=== PATIENT | female | born 1940 | race Caucasian/White ===

== ENCOUNTER 2018-07-19 18:33 | Emergency (ER) | payer MEDICARE ==
[~2018-07-19] VITALS: Ht 157.5 cm; Wt 69.9 kg
[2018-07-19 19:17] VITALS: BP 157/116
[2018-07-19] MEDS ORDERED: RT-ALBUTEROL/IPRATROPIUM 3 ML (DUONEB) VIAL INH ONE ×2 (19:30→20:30)
[2018-07-19 19:33] LABS: BASOPHILS # (AUTO) 0.1 10^3/uL (0.0-0.1); BASOPHILS % (AUTO) 1 % (0-10); EOSINOPHILS # (AUTO) 0.5 10^3/uL (0.0-0.3); EOSINOPHILS % (AUTO) 6 % (0-10); HEMATOCRIT 40 % (35-52); HEMOGLOBIN 13.2 G/DL (11.5-16.0); LYMPHOCYTES # (AUTO) 1.3 X 10^3 (1.0-4.0); LYMPHOCYTES % (AUTO) 15 % (12-44); MEAN CORPUSCULAR HEMOGLOBIN 29 PG (25-34); MEAN CORPUSCULAR HGB CONC 33 G/DL (32-36); MEAN CORPUSCULAR VOLUME 87 FL (80-99); MEAN PLATELET VOLUME 10.1 FL (7.4-10.4); MONOCYTES # (AUTO) 1.6 X 10^3 (0.0-1.0); MONOCYTES % (AUTO) 19 % (0-12); NEUTROPHILS % (AUTO) 59 % (42-75); PLATELET COUNT 222 10^3/uL (130-400); RED BLOOD COUNT 4.57 10^6/uL (4.35-5.85); RED CELL DISTRIBUTION WIDTH 15.1 % (10.0-14.5); WHITE BLOOD COUNT 8.4 10^3/uL (4.3-11.0)
[2018-07-19 19:40] LABS: INR 1.7 (0.8-1.4); PROTHROMBIN TIME PATIENT 20.2 SEC (12.2-14.7)
[2018-07-19 19:47] LABS: ALANINE AMINOTRANSFERASE 20 U/L (0-55); ALKALINE PHOSPHATASE 74 U/L (40-136); BILIRUBIN,TOTAL 0.6 MG/DL (0.1-1.0); BUN/CREATININE RATIO 23; CALCIUM 8.8 MG/DL (8.5-10.1); CARBON DIOXIDE 22 MMOL/L (21-32); CREATININE SERUM 0.87 MG/DL (0.60-1.30); GFR ESTIMATED > 60; GLUCOSE 106 MG/DL (70-105)
--- NOTE | 2018-07-19 19:56 | Diagnostic Imaging Report ---
INDICATION: Cough, chest pain COMPARISON: 08/12/2011 TECHNIQUE: Single radiograph of the chest dated 07/19/2018 FINDINGS: The cardiac silhouette is enlarged, increased in size since the prior examination. Minimal pulmonary vascular congestion. Mild bilateral interstitial opacities are present, having increased since the prior examination from 2011. No additional dense focal consolidation. No significant pleural effusion. No pneumothorax. No acute osseous abnormality. IMPRESSION: Mild background interstitial opacities. This is nonspecific though could relate to minimal interstitial edema given slight pulmonary vascular congestion and development of cardiomegaly since 2012. However, developing background interstitial lung disease would be an additional consideration. Viral pneumonitis felt less likely. Dictated by: Dictated on workstation # [id number]
[2018-07-19 19:57] LABS: BILIRUBIN,URINE NEGATIVE (NEGATIVE); CLARITY,URINE SLIGHTLY CLOUDY; COLOR,URINE YELLOW; GLUCOSE, URINE (UA) NEGATIVE (NEGATIVE); KETONES,URINE NEGATIVE (NEGATIVE); LEUKOCYTE ESTERASE ,URINE 2+ (NEGATIVE); NITRITE,URINE NEGATIVE (NEGATIVE); PH,URINE 7 (5-9); PROTEIN,URINE 1+ (NEGATIVE); UROBILINOGEN,URINE NORMAL (NORMAL)
[2018-07-19 20:04] LABS: BAND NEUTROPHILS 2 %; BASOPHILS % (MANUAL) 4 %; EOSINOPHILS % (MANUAL) 5 %; LYMPHOCYTES % (MANUAL) 20 %; MONOCYTES % (MANUAL) 14 %; NEUTROPHILS % (MANUAL) 55 %; RBC MORPH NORMAL
[2018-07-19 20:06] LABS: TSH (THYROID ANALYZER) 0.74 UIU/ML (0.35-4.94)
[2018-07-19 20:12] LABS: BACTERIA,URINE LARGE /HPF; SQUAMOUS EPITHELIAL CELL,UR 0-2 /HPF; WBC,URINE 25-50 /HPF
[2018-07-19 20:19] LABS: CHLORIDE 106 MMOL/L (98-107); MAGNESIUM 2.3 MG/DL (1.8-2.4); POTASSIUM 4.1 MMOL/L (3.6-5.0); SODIUM 139 MMOL/L (135-145)
[2018-07-19] MEDS ORDERED: NITROGLYCERIN 2% OINT 1 GM UNIT DOSE PACKET TOP ONE (20:30)
[2018-07-19] MEDS ORDERED: FUROSEMIDE 40 MG/4 ML INJ (LASIX) IVP ONE (20:30)
[2018-07-19] MEDS ORDERED: cefTRIAXone FOR IV USE 1,000 MG in NS (IVPB) 50 ML IV ONE (20:30)
[2018-07-19] MEDS ORDERED: methylPREDNISolone 125 MG (Solu-MEDROL) VIAL IVP ONE (20:30)
[2018-07-19] MEDS ORDERED: RX-ALBUTEROL INHALER (PROAIR) 8 GM IH ONE (21:17)
--- NOTE | 2018-07-19 21:17 | ED Cough/URI ---
General Chief Complaint: Cough/Cold/Flu Symptoms Stated Complaint: COUGH,FEELS FEVERISH Nursing Triage Note: Pt arrived with cc of diarrhea and coughing. Pt stated has been going on for past few days. Diarrhea x 3 today. Cough is productive and pt stated she has had a fever, but can't take tylenol or motrin she stated. Pt stated small production that is yellow. Allergies and Home Medications Allergies Coded Allergies: No Known Drug Allergies (Verified Allergy, Unknown, 11/19/08) Past Zthrpyq-Ytlnba-Qijcku Hx Patient Social History Alcohol Use: Denies Use Recreational Drug Use: No Smoking Status: Never a Smoker Recent Foreign Travel: No Contact w/Someone Who Travel: No Recent Infectious Disease Expo: No Recent Hopitalizations: No Physical Abuse: No Sexual Abuse: No Mistreated: No Fear: No Past Medical History Surgeries: No Respiratory: No Cardiac: No Neurological: No Reproductive Disorders: No Gastrointestinal: No Endocrine: No Psychosocial: No Blood Disorders: No Physical Exam Vital Signs - First Documented 07/19/18 07/19/18 19:17 19:23 Temp 100.5 Pulse 154 Resp 22 B/P (MAP) 157/116 (130) Pulse Ox 96 O2 Delivery Room Air Capillary Refill : Less Than 3 Seconds Height: 5'2.00" Weight: 154lbs. oz. 69.421459lb; BMI Method:Stated Focused Exam Lactate Level 07/19/18 19:17: Lactic Acid Level 0.83 Lactic Acid Level Laboratory Tests Test 07/19/18 19:17 Lactic Acid Level 0.83 MMOL/L (0.50-2.00) Progress/Results/Core Measures Suspected Sepsis Recent Fever Within 48 Hours: Yes Infection Criteria Present: Suspected New Infection New/Unexplained Altered Menta: No Sepsis Screen: Possible Sepsis Risk SIRS Temperature:100.5 Pulse: 154 Respiratory Rate: 22 Laboratory Tests 07/19/18 19:17: White Blood Count 8.4 Blood Pressure 157 /116 Mean: 130 07/19/18 19:17: Lactic Acid Level 0.83 Laboratory Tests 07/19/18 19:17: Creatinine 0.87, INR Comment 1.7H, Platelet Count 222, Total Bilirubin 0.6 Results/Orders Lab Results Laboratory Tests Test 07/19/18 19:17 07/19/18 19:47 Range/Units White Blood Count 8.4 4.3-11.0 10^3/uL Red Blood Count 4.57 4.35-5.85 10^6/uL Hemoglobin 13.2 11.5-16.0 G/DL Hematocrit 40 35-52 % Mean Corpuscular Volume 87 80-99 FL Mean Corpuscular Hemoglobin 29 25-34 PG Mean Corpuscular Hemoglobin Concent 33 32-36 G/DL Red Cell Distribution Width 15.1 H 10.0-14.5 % Platelet Count 222 130-400 10^3/uL Mean Platelet Volume 10.1 7.4-10.4 FL Neutrophils (%) (Auto) 59 42-75 % Lymphocytes (%) (Auto) 15 12-44 % Monocytes (%) (Auto) 19 H 0-12 % Eosinophils (%) (Auto) 6 0-10 % Basophils (%) (Auto) 1 0-10 % Neutrophils # (Auto) 5.0 1.8-7.8 X 10^3 Lymphocytes # (Auto) 1.3 1.0-4.0 X 10^3 Monocytes # (Auto) 1.6 H 0.0-1.0 X 10^3 Eosinophils # (Auto) 0.5 H 0.0-0.3 10^3/uL Basophils # (Auto) 0.1 0.0-0.1 10^3/uL Neutrophils % (Manual) 55 % Lymphocytes % (Manual) 20 % Monocytes % (Manual) 14 % Eosinophils % (Manual) 5 % Basophils % (Manual) 4 % Band Neutrophils 2 % Blood Morphology Comment NORMAL Prothrombin Time 20.2 H 12.2-14.7 SEC INR Comment 1.7 H 0.8-1.4 Activated Partial Thromboplast Time 40 H 24-35 SEC Sodium Level 139 135-145 MMOL/L Potassium Level 4.1 3.6-5.0 MMOL/L Chloride Level 106 98-107 MMOL/L Carbon Dioxide Level 22 21-32 MMOL/L Anion Gap 11 5-14 MMOL/L Blood Urea Nitrogen 20 H 7-18 MG/DL Creatinine 0.87 0.60-1.30 MG/DL Estimat Glomerular Filtration Rate > 60 BUN/Creatinine Ratio 23 Glucose Level 106 H 70-105 MG/DL Lactic Acid Level 0.83 0.50-2.00 MMOL/L Calcium Level 8.8 8.5-10.1 MG/DL Corrected Calcium 8.8 8.5-10.1 MG/DL Magnesium Level 2.3 1.8-2.4 MG/DL Total Bilirubin 0.6 0.1-1.0 MG/DL Aspartate Amino Transf (AST/SGOT) 26 5-34 U/L Alanine Aminotransferase (ALT/SGPT) 20 0-55 U/L Alkaline Phosphatase 74 40-136 U/L Troponin I < 0.30 <0.30 NG/ML B-Type Natriuretic Peptide 362.9 H <100.0 PG/ML Total Protein 7.0 6.4-8.2 GM/DL Albumin 4.0 3.2-4.5 GM/DL TSH [place] Testing 0.74 0.35-4.94 UIU/ML Urine Color YELLOW Urine Clarity SLIGHTLY CLOUDY Urine pH 7 5-9 Urine Specific [place] 1.015 L 1.016-1.022 Urine Protein 1+ H NEGATIVE Urine Glucose (UA) NEGATIVE NEGATIVE Urine Ketones NEGATIVE NEGATIVE Urine Nitrite NEGATIVE NEGATIVE Urine Bilirubin NEGATIVE NEGATIVE Urine Urobilinogen NORMAL NORMAL MG/DL Urine Leukocyte Esterase 2+ H NEGATIVE Urine RBC (Auto) 3+ H NEGATIVE Urine RBC 2-5 H /HPF Urine WBC 25-50 H /HPF Urine Squamous Epithelial Cells 0-2 /HPF Urine Crystals NONE /LPF Urine Bacteria LARGE H /HPF Urine Casts NONE /LPF Urine Mucus NEGATIVE /LPF Urine Culture Indicated NO Micro Results Microbiology 07/19/18 Influenza Types A,B Antigen (HAYLIE) - Final, Complete My Orders Orders - DAGO BENDER DO Saline Lock/Iv-Start (07/19/18 19:23) Ekg Tracing (07/19/18 19:23) O2 (07/19/18 19:23) Monitor-Rhythm Ecg Trace Only (07/19/18 19:23) BNP (07/19/18 19:23) Cbc With Automated Diff (07/19/18 19:23) Comprehensive Metabolic Panel (07/19/18 19:23) Lactic Acid Analyzer (07/19/18 19:23) Magnesium (07/19/18 19:23) Protime With Inr (07/19/18 19:23) Partial Thromboplastin Time (07/19/18 19:23) Thyroid Analyzer (07/19/18 19:23) Troponin I (07/19/18 19:23) Ua Culture If Indicated (07/19/18 19:23) Blood Culture (07/19/18 19:23) Influenza A And B Antigens (07/19/18 19:23) Chest 1 View, Ap/Pa Only (07/19/18 19:23) Albuterol/Ipra Inhalation Soln (Duoneb I (07/19/18 19:30) Rt Request For Service (07/19/18 19:23) Svn Small Volume Nebulizer (07/19/18 19:23) Sputum Culture (07/19/18 19:23) Urine Culture (07/19/18 19:23) Saline Lock/Iv-Start (07/19/18 19:23) Vital Signs Adult Sepsis Patie Q15M (07/19/18 19:23) Remove Rings In Anticipation O (07/19/18 19:23) Manual Differential (07/19/18 19:17) Methylprednisolone Sod Succ (Solu-Medrol (07/19/18 20:30) Furosemide Injection (Lasix Injection) (07/19/18 20:30) Ceftriaxone For Iv Use (Rocephin For I (07/19/18 20:30) Nitroglycerin Ointment (Nitrobid Ointme (07/19/18 20:30) Albuterol/Ipra Inhalation Soln (Duoneb I (07/19/18 20:30) Rt Request For Service (07/19/18 20:25) Svn Small Volume Nebulizer (07/19/18 20:25) Rx-Albuterol Inhaler (Rx-Proair) (07/19/18 21:18) Benzonatate Capsule (Tessalon Perles) (07/20/18 09:00) Promethazine/ Codeine Syrup (Phenergan W (07/19/18 21:30) Medications Given in ED Current Medications Medications Dose Ordered Sig/Jelena Route Start Time Stop Time Status Last Admin Dose Admin Albuterol/ Ipratropium 3 ml ONCE ONCE INH 07/19/18 19:30 07/19/18 19:31 DC 07/19/18 20:04 3 ML Albuterol/ Ipratropium 3 ml ONCE ONCE INH 07/19/18 20:30 07/19/18 20:31 DC 07/19/18 21:10 3 ML Vital Signs/I&O 07/19/18 07/19/18 07/19/18 19:17 19:23 20:04 Temp 100.5 100.5 Pulse 154 Resp 22 22 B/P (MAP) 157/116 (130) 157/116 (130) Pulse Ox 96 96 95 O2 Delivery Room Air Room Air Room Air Capillary Refill : Less Than 3 Seconds Blood Pressure Mean: 130 Departure Impression Primary Impression: Bronchitis Additional Impressions: Mild congestive heart failure Chronic atrial fibrillation Disposition: HOME, SELF-CARE Condition: Improved Departure-Patient Inst. Referrals: EDEL MORA MD (PCP/Family) Primary Care Physician Patient Instructions: Acute Bronchitis, Adult (DC), Atrial Fibrillation (DC), CHF Add. Discharge Instructions: LOTS OF CLEAR LIQUIDS TYLENOL AND MOTRIN 4 TIMES A DAY FOR PAIN OR FEVER CONTINUE YOUR REGULAR MEDICATIONS PRESCRIBED FOLLOW UP WITH YOUR DR IN 2-3 DAYS FOR FURTHER CARE RETURN TO ER IF WORSE All discharge instructions reviewed with patient and/or family. Voiced understanding. Scripts Potassium Chloride (Potassium Chloride) 20 Meq Packet 20 MEQ PO DAILY for 3 Days, #3 PACKET Prov: NAPOLEONDAGO K DO 07/19/18 Furosemide (Lasix) 40 Mg Tablet 40 MG PO DAILY for 3 Days, #3 TAB Prov: NAPOLEON,DAGO K DO 07/19/18 Albuterol Sulfate (PROAIR HFA) 1 Puff Puff 2 PUFF IH Q4H for BREATHING, #1 GM Prov: NAPOLEON,DAGO K DO 07/19/18 Azithromycin (Zithromax) 500 Mg Tablet 500 MG PO DAILY, #5 TAB FOR INFECTION Prov: NAPOLEONDAGO K DO 07/19/18 Cefdinir (Cefdinir) 300 Mg Capsule 300 MG PO BID for FOR INFECTION, #20 CAP Prov: NAPOLEON,DAGO K DO 07/19/18 Benzonatate (TESSALON PERLES) 100 Mg Capsule 1-2 TAB PO TID for Cough, #30 CAP Prov: NAPOLEON,DAGO K DO 07/19/18 Guaifenesin/Dextromethorphan (Mucinex Dm ER 1,200-60 mg Tab) 1 Each Tbmp.12hr 1 EACH PO BID for 10 Days, #20 EA Prov: NAPOLEON,DAGO K DO 07/19/18 Methylprednisolone (Medrol) 4 Mg Tab.ds.pk 4 MG PO UD, #1 PKG Prov: DAGO BENDER DO 07/19/18 DAGO BENDER DO Jul 19, 2018 21:17
[2018-07-19] MEDS ORDERED: RX-ALBUTEROL INHALER (PROAIR) 8 GM IH STA (21:18)
[2018-07-19] MEDS ORDERED: AZIT500T PO (21:26)
[2018-07-19] MEDS ORDERED: FURO-124 PO (21:26)
[2018-07-19] MEDS ORDERED: METH4TAB PO (21:26)
[2018-07-19] MEDS ORDERED: BENZ100C18 PO (21:26)
[2018-07-19] MEDS ORDERED: RT-ALBUINH IH (21:26)
[2018-07-19] MEDS ORDERED: CEFD300C3 PO (21:26)
[2018-07-19] MEDS ORDERED: POTA20PA28 PO (21:26)
[2018-07-19] MEDS ORDERED: GUAI1TBM19 PO (21:26)
[2018-07-19] MEDS ORDERED: PROMETHAZINE/ CODEINE SYRUP 5 ML UDC PO ONE (21:30)
[2018-07-19] MEDS ORDERED: BENZONATATE 100 MG (TESSALON) CAPSULE PO SCH (22:00)
[2018-07-19 22:23] VITALS: BP 174/103
[2018-07-20] MEDS ORDERED: BENZONATATE 100 MG (TESSALON) CAPSULE PO SCH (09:00)
== END 2018-07-19 22:23 | disposition home or self-care (01) ==
LOC: EDUNIT# 18:33 → ER 18:35
DX: J40 Bronchitis, not specified as acute or chronic (principal); I50.9 Heart failure, unspecified; I48.2 Chronic atrial fibrillation
CPT/HCPCS: 36415; 71045; 80053; 81000; 83605; 83735; 83880; 84443; 84484; 85007; 85027; 85610; 85730; 87040; 87077; 87088; 87186; 87804; 93005; 93041; 94640; 96365; 96375

== ENCOUNTER 2019-12-25 12:30 | Emergency (ER) | payer MEDICARE, OTHER ==
[~2019-12-25] VITALS: Ht 157.5 cm; Wt 70.0 kg
[~2019-12-25 12:30] MED LIST: AZIT500T PO; BENZ100C18 PO; CEFD300C3 PO; FURO-124 PO; GUAI1TBM19 PO; METH4TAB PO; POTA20PA28 PO; RT-ALBUINH IH
--- NOTE | 2019-12-25 12:54 | ED General ---
General Stated Complaint: RT LEG PAIN Source of Information: Patient History of Present Illness Date Seen by Provider: Dec 25, 2019 Time Seen by Provider: 12:35 Initial Comments The patient is a pleasant 79-year-old female who presents for evaluation of some discomfort to the right medial upper calf. She is concerned about a blood clot and came to the emergency department for an ultrasound. She has a history of atrial fibrillation and takes Coumadin but states that she recently dropped a pill so is worried that she may not be fully anticoagulated. She has no history of DVT or PE. She is alert and oriented 4, calm, and appears to be in no distress at this time. She denies chest pain or shortness of breath, fevers or chills, nausea or vomiting, palpitations or syncope. She denies any trauma to the leg. She is alert and oriented 4, calm, and appears to be in no distress this time. Timing/Duration: 12-24 Hours Severity: Mild Modifying Factors: improves with Movement (makes it slightly worse) Associated Systoms: Denies Symptoms Allergies and Home Medications Allergies Coded Allergies: No Known Drug Allergies (Verified Allergy, Unknown, 11/19/08) Home Medications Albuterol Sulfate 1 Puff Puff, 2 PUFF IH Q4H Prescribed by: DAGO BENDER on 07/19/182125 Azithromycin 500 Mg Tablet, 500 MG PO DAILY FOR INFECTION Prescribed by: DAGO BENDER on 07/19/182125 Benzonatate 100 Mg Capsule, 1-2 TAB PO TID Prescribed by: DAGO BENDER on 07/19/182125 Cefdinir 300 Mg Capsule, 300 MG PO BID Prescribed by: DAGO BENDER on 07/19/182125 Furosemide 40 Mg Tablet, 40 MG PO DAILY Prescribed by: DAGO BENDER on 07/19/182125 Guaifenesin/Dextromethorphan 1 Each Tbmp.12hr, 1 EACH PO BID Prescribed by: DAGO BENDER on 07/19/182125 Methylprednisolone 4 Mg Tab.ds.pk, 4 MG PO UD Prescribed by: DAGO BENDER on 07/19/182125 Potassium Chloride 20 Meq Packet, 20 MEQ PO DAILY Prescribed by: DAGO BENDER on 07/19/182125 Patient Home Medication List Home Medication List Reviewed: Yes Review of Systems Review of Systems Constitutional: no symptoms reported EENTM: no symptoms reported Respiratory: no symptoms reported Cardiovascular: no symptoms reported Gastrointestinal: no symptoms reported Genitourinary: no symptoms reported Musculoskeletal: other (discomfort to right medial calf) Skin: no symptoms reported Psychiatric/Neurological: No Symptoms Reported Hematologic/Lymphatic: No Symptoms Reported Immunological/Allergic: no symptoms reported Past Yxdgtpx-Wgouek-Jsuesq Hx Past Med/Social Hx: Reviewed Nursing Past Med/Soc Hx Patient Social History Recent Foreign Travel: No Contact w/Someone Who Travel: No Recent Hopitalizations: No Past Medical History Surgeries: No Respiratory: No Cardiac: Yes (O2 AT 2L/NC AT HS) Atrial Fibrillation Neurological: No Reproductive Disorders: No Genitourinary: No Gastrointestinal: No Musculoskeletal: No Endocrine: No HEENT: No Cancer: No Psychosocial: No Integumentary: No Blood Disorders: No Physical Exam Vital Signs Vital Signs - First Documented 12/25/19 12:35 Temp 36.8 Pulse 87 Resp 14 B/P (MAP) 152/64 (93) Pulse Ox 97 O2 Delivery Room Air Capillary Refill : Height, Weight, BMI Height: 5'2.00" Weight: 154lbs. oz. 69.157885vs; BMI Method:Stated General Appearance: No Apparent Distress, WD/WN Eyes: Bilateral Eye Normal Inspection, Bilateral Eye PERRL, Bilateral Eye EOMI HEENT: PERRL/EOMI, Pharynx Normal Neck: Full Range of Motion, Non Tender Respiratory: Lungs Clear, Normal Breath Sounds, No Accessory Muscle Use, No Respiratory Distress Cardiovascular: Regular Rate, Rhythm, No Edema, No Murmur Extremity: Normal Capillary Refill, Normal Range of Motion, Calf Tenderness (mild, right medial, no edema/swelling) Neurologic/Psychiatric: Alert, Oriented x3, No Motor/Sensory Deficits, Normal Mood/Affect, travel manager II-XII Norm as Tested Skin: Normal Color, Warm/Dry Progress/Results/Core Measures Suspected Sepsis SIRS Temperature: Pulse: Respiratory Rate: Blood Pressure / Mean: Laboratory Tests 12/25/19 13:05: INR Comment 1.7H Results/Orders Lab Results Laboratory Tests Test 12/25/19 13:05 Range/Units Prothrombin Time 20.4 H 12.2-14.7 SEC INR Comment 1.7 H 0.8-1.4 My Orders Orders - MEÑO SINGER DO Protime With Inr (12/25/19 12:41) Us Venous Lower Ext Rt (12/25/19 12:41) Vital Signs/I&O 12/25/19 12:35 Temp 36.8 Pulse 87 Resp 14 B/P (MAP) 152/64 (93) Pulse Ox 97 O2 Delivery Room Air Capillary Refill : Progress Note : Progress Note @1336 - Patient updated on ultrasound which is unremarkable and INR which is 1.7. Advised the patient to continue her normal Coumadin dose. Advised her to follow up with her PCP in the next 1-2 days and to return to the emergency Department immediately for new or worsening symptoms. The patient has no further complaints and is asking to go home. Workup fails to reveal any emergent pathology and she is stable for discharge. Diagnostic Imaging Diagonstic Imaging: Ultrasound Comments [facility]. [place], [place] NAME: [facility] REC#: [id number] PT STATUS: REG ER : 1940 PHYSICIAN: MEÑO SINGER DO ADMIT DATE: 12/25/19/ER FS Draft Date of Exam:12/25/19 US VENOUS LOWER EXT RT PROCEDURE: US right lower extremity venous. TECHNIQUE: Multiple real-time grayscale images were obtained over the right lower extremity in various projections. Additional spectral analysis and color Doppler duplex images were also obtained. INDICATION: Leg pain and swelling. COMPARISON: There are no prior studies available for comparison. FINDINGS: There is generally good blood flow and compressibility at all levels. There is no evidence of deep venous thrombosis. IMPRESSION: There is no evidence of deep venous thrombosis of the right lower extremity. Dictated on workstation # [id number] Dict: 12/25/19 1323 Trans: 12/25/19 1326 [facility] [id number] Interpreted by: STEPHANI SCHWARTZ MD Electronically signed by: Departure Impression Primary Impression: Right calf pain Additional Impression: Subtherapeutic international normalized ratio (INR) Disposition: 01 HOME, SELF-CARE Condition: Stable Departure-Patient Inst. Decision time for Depature: 13:37 Referrals: LAURA VELOZ MD (PCP/Family) Primary Care Physician Add. Discharge Instructions: Follow-up with your doctor in the next 1-2 days. Return to the emergency Department immediately for new or worsening symptoms. Take Tylenol at home for pain relief is needed. MEÑO SINGER DO Dec 25, 2019 12:54
--- NOTE | 2019-12-25 13:26 | Diagnostic Imaging Report ---
PROCEDURE: US right lower extremity venous. TECHNIQUE: Multiple real-time grayscale images were obtained over the right lower extremity in various projections. Additional spectral analysis and color Doppler duplex images were also obtained. INDICATION: Leg pain and swelling. COMPARISON: There are no prior studies available for comparison. FINDINGS: There is generally good blood flow and compressibility at all levels. There is no evidence of deep venous thrombosis. IMPRESSION: There is no evidence of deep venous thrombosis of the right lower extremity. Dictated by: Dictated on workstation # [id number]
[2019-12-25 13:32] LABS: INR 1.7 (0.8-1.4); PROTHROMBIN TIME PATIENT 20.4 SEC (12.2-14.7)
[2019-12-25 13:50] VITALS: BP 103/46
--- NOTE | 2019-12-25 13:53 | NUR ---
Appointment with Dr. Holbrook at [facility] was made for Wednesday at 2148
--- OUTSIDE RECORDS SUMMARY | 2019-12-25 14:25 | XMS REPORT | Continuity of Care Document ---
Author Organization Unknown Address Unknown Phone Unavailable Allergies Active Description Code Type Severity Reaction Onset Reported/Identified Relationship to Patient Clinical Status Yes No Known Drug Allergies [id number] Drug Allergy Unknown N/A 11/19/2008 Medications There is no data. Problems Date Dx Coded Attending Type Code Diagnosis Diagnosed By 07/19/2018 NAPOLEON DO, DAGO K Ot I48.2 CHRONIC ATRIAL FIBRILLATION 07/19/2018 NAPOLEON DO, DAGO K Ot I50.9 HEART FAILURE, UNSPECIFIED 07/19/2018 NAPOLEON DO, DAGO K Ot J40 BRONCHITIS, NOT SPECIFIED ACUTE OR CH 07/19/2018 NAPOLEON DO, DAGO K Ot R19.7 DIARRHEA, UNSPECIFIED 07/22/2018 NAPOLEON DO, DAGO K Ot I48.2 CHRONIC ATRIAL FIBRILLATION 07/22/2018 NAPOLEON DO, DAGO K Ot I50.9 HEART FAILURE, UNSPECIFIED 07/22/2018 NAPOLEON DO, DAGO K Ot J40 BRONCHITIS, NOT SPECIFIED ACUTE OR CH 07/22/2018 NAPOLEON DO, DAGO K Ot R19.7 DIARRHEA, UNSPECIFIED Procedures There is no data. Results Test Result Range Influenza virus A and B antigen detectio n - 07/19/18 19:16 FLU RESULT NEGATIVE FOR INFLUENZA A AND B ANTIGENS BY IA [facility] Complete blood count (CBC) with automate d white blood cell (WBC) differential - 07/19/18 19:17 Blood leukocytes automated count (number/volume) 8.4 10*3/uL 4.3-11.0 Blood erythrocytes automated count (number/volume) 4.57 10*6/uL 4.35-5.85 Venous blood hemoglobin measurement (mass/volume) 13.2 g/dL 11.5-16.0 Blood hematocrit (volume fraction) 40 % 35-52 Automated erythrocyte mean corpuscular volume 87 [ foz_us] 80-99 Automated erythrocyte mean corpuscular h emoglobin (mass per erythrocyte) 29 pg 25-34 Automated erythrocyte mean corpuscular h emoglobin concentration measurement (mass/volume) 33 g/dL 32-36 Automated erythrocyte distribution width ratio 15. 1 % 10.0- 14.5 Automated blood platelet count (count/volume) 222 10*3/uL 130-400 Automated blood platelet mean volume measurement 10.1 [foz_us] 7.4-10.4 Automated blood neutrophils/100 leukocytes 59 % 42-75 Automated blood lymphocytes/100 leukocytes 15 % 12-44 Blood monocytes/100 leukocytes 19 % 0-12 Automated blood eosinophils/100 leukocytes 6 % 0-10 Automated blood basophils/100 leukocytes 1 % 0-10 Blood neutrophils automated count (number/volume) 5.0 10*3 1.8-7.8 Blood lymphocytes automated count (number/volume) 1.3 10*3 1.0-4.0 Blood monocytes automated count (number/volume) 1. 6 10*3 0.0-1.0 Automated eosinophil count 0.5 10*3/uL 0 .0-0.3 Automated blood basophil count (count/volume) 0.1 10*3/uL 0.0-0.1 Blood lactic acid measurement (moles/vol ume) - 07/19/18 19:17 Blood lactic acid measurement (moles/volume) 0.83 mmol/L 0.50-2.00 PT panel in platelet poor plasma by coag ulation assay - 07/19/18 19:17 Prothrombin time (PT) in platelet poor plasma by coagu lation assay 20.2 s 12.2-14.7 INR in platelet poor plasma or blood by coagulation as say 1.7 0.8-1.4 Activated partial thromboplastin time (a PTT) in platelet poor plasma bycoagulation assay - 07/19/18 19:17 Activated partial thromboplastin time (a PTT) in platelet poor plasma bycoagulation assay 40 s 24-35 Comprehensive metabolic panel - 07/19/18 19:17 Serum or plasma sodium measurement (moles/volume) 139 mmol/L 135-145 Serum or plasma potassium measurement (moles/volume) 4.1 mmol/L 3.6-5.0 Serum or plasma chloride measurement (moles/volume) 106 mmol/L 98-107 Carbon dioxide 22 mmol/L 21-32 Serum or plasma anion gap determination (moles/volume) 11 mmol/L 5-14 Serum or plasma urea nitrogen measurement (mass/volume ) 20 mg/dL 7-18 Serum or plasma creatinine measurement (mass/volume) 0.87 mg/dL 0.60-1.30 Serum or plasma urea nitrogen/creatinine mass ratio 23 NRG Serum or plasma creatinine measurement w ith calculation of estimated glomerular filtration rate > NRG Serum or plasma glucose measurement (mass/volume) 106 mg/dL 70-105 Serum or plasma calcium measurement (mass/volume) 8.8 mg/dL 8.5-10.1 Serum or plasma total bilirubin measurement (mass/volu me) 0.6 mg/dL 0.1-1.0 Serum or plasma alkaline phosphatase becka surement (enzymatic activity/volume) 74 U/L 40-136 Serum or plasma aspartate aminotransfera se measurement (enzymatic activity/volume) 26 U/L 5-34 Serum or plasma alanine aminotransferase measurement (enzymatic activity/volume) 20 U/L 0-55 Serum or plasma protein measurement (mass/volume) 7.0 g/dL 6.4-8.2 Serum or plasma albumin measurement (mass/volume) 4.0 g/dL 3.2-4.5 CALCIUM CORRECTED 8.8 mg/dL 8.5-10.1 Serum or plasma lithium measurement (mol es/volume) - 07/19/18 19:17 BNP level 362.9 pg/mL <100.0 Blood manual differential performed dete ction - 07/19/18 19:17 Blood monocytes/100 leukocytes 14 % NRG Manual blood segmented neutrophils/100 leukocytes 55 % NRG Blood band neutrophils/100 leukocytes 2 % NRG Manual blood lymphocytes/100 leukocytes 20 % NRG Manual eosinophils/100 leukocytes in nose 5 % NRG Manual blood basophils/100 leukocytes 4 % NRG Blood erythrocyte morphology finding identification NORMAL NRG Magnesium - 07/19/18 19:17 Magnesium 2.3 mg/dL 1.8-2.4 Serum or plasma troponin i.cardiac measu rement (mass/volume) - 07/19/18 19:17 Serum or plasma troponin i.cardiac measurement (mass/v olume) < ng/mL <0.30 Serum or plasma thyrotropin measurement by detection limit <=0.05 miu/l (units/volume) - 07/19/18 19:17 Serum or plasma thyrotropin measurement by detection limit <=0.05 miu/l (units/volume) 0.74 u[iU]/mL 0.35-4.94 Bacterial blood culture - 07/19/18 19:17 Bacterial blood culture NG NRG Bacterial blood culture - 07/19/18 19:41 Bacterial blood culture NG NRG Complete urinalysis with reflex to cultu re - 07/19/18 19:47 Urine color determination YELLOW NRG Urine clarity determination SLIGHTLY CLOUDY NRG Urine pH measurement by test strip 7 5-9 Specific gravity of urine by test strip 1.015 1.016-1.022 Urine protein assay by test strip, semi-quantitative 1+ NEGATIVE Urine glucose detection by automated test strip NE GATIVE NEGATIVE Erythrocytes detection in urine sediment by light micr oscopy 3+ NEGATIVE Urine ketones detection by automated test strip NE GATIVE NEGATIVE Urine nitrite detection by test strip NEGATIVE NEGATIVE Urine total bilirubin detection by test strip NEGA TIVE NEGATIVE Urine urobilinogen measurement by automated test strip (mass/volume) NORMAL NORMAL Urine leukocyte esterase detection by dipstick 2+ NEGATIVE Automated urine sediment erythrocyte cou nt by microscopy (number/high power field) [HPF] NRG Automated urine sediment leukocyte count by microscopy (number/high power field) [HPF] NRG Bacteria detection in urine sediment by light microsco py LARGE NRG Squamous epithelial cells detection in u rine sediment by light microscopy 0-2 NRG Crystals detection in urine sediment by light microsco py NONE NRG Casts detection in urine sediment by light microscopy NONE NRG Mucus detection in urine sediment by light microscopy NEGATIVE NRG Complete urinalysis with reflex to culture NO NRG Bacterial urine culture - 07/19/18 19:47 Bacterial urine culture [id number] NRG COLONY COUNT >100,000/ML NRG FTX;REPORTABLE ID REPORTED 07/20/18 16:05 NRG FREE TEXT ENTRY 2 SENSITIVITY REPORTED 07/21/18 11 :05 NRG RML Sensitivity Panel - 07/19/18 19:47 Gentamicin susceptibility test by minimum inhibitory c oncentration <= NRG Trimethoprim/sulfamethoxazole susceptibi lity test by minimum inhibitoryconcentration <= NRG Levofloxacin susceptibility test by minimum inhibitory concentration > NRG Ampicillin susceptibility test by minimum inhibitory c oncentration > NRG Cefazolin susceptibility test by minimum inhibitory co ncentration 8 NRG Ceftriaxone susceptibility test by minimum inhibitory concentration <= NRG Ciprofloxacin susceptibility test by minimum inhibitor y concentration > NRG Meropenem susceptibility test by minimum inhibitory co ncentration <= NRG Nitrofurantoin susceptibility test by mo nimum inhibitory concentration 32 NRG Amoxicillin and clavulanate potassium susc HAYLIE = NRG LIPID PANEL - 08/24/19 11:27 CHOLESTEROL, TOTAL 212 mg/dL <200 HDL CHOLESTEROL 53 mg/dL >50 TRIGLYCERIDES 127 mg/dL <150 LDL-CHOLESTEROL 135 mg/dL (calc) NRG CHOL/HDLC RATIO 4.0 (calc) <5.0 NON HDL CHOLESTEROL 159 mg/dL (calc) <13 0 CMP - 08/24/19 11:27 GLUCOSE 115 mg/dL 65-99 UREA NITROGEN (BUN) 26 mg/dL 7-25 CREATININE 0.89 mg/dL 0.60-0.93 eGFR NON-AFR. BRUNEIAN 62 mL/min/1.73m2 > OR = 60 eGFR 71 mL/min/1.73m2 > OR = 60 BUN/CREATININE RATIO 29 (calc) 6-22 SODIUM 142 mmol/L 135-146 POTASSIUM 4.0 mmol/L 3.5-5.3 CHLORIDE 105 mmol/L 98-110 CARBON DIOXIDE 28 mmol/L 20-32 CALCIUM 9.7 mg/dL 8.6-10.4 PROTEIN, TOTAL 6.8 g/dL 6.1-8.1 ALBUMIN 4.1 g/dL 3.6-5.1 GLOBULIN 2.7 g/dL (calc) 1.9-3.7 ALBUMIN/GLOBULIN RATIO 1.5 (calc) 1.0-2. 5 BILIRUBIN, TOTAL 0.6 mg/dL 0.2-1.2 ALKALINE PHOSPHATASE 64 U/L 33-130 AST 20 U/L 10-35 ALT 17 U/L 6-29 Encounters ACCT No. Visit Date/Time Discharge Status Pt. Type Provider Facility Loc./Unit Complaint [id number] 08/24/2019 11:00:00 08/24/2019 23:59:5 9 CLS Outpatient SELF, LAURA Patterson [facility] [id number] 08/24/2019 11:00:00 Document Registration [id number] 07/19/2018 18:35:00 018 22:23:00 DIS Emergency NAPOLEON DODAGO Vi a [facility] ER COUGH,FEELS FEVERISH [id number] 07/19/2018 21:27:00 Document Registration [id number] 07/19/2018 21:27:00 Document Registration [id number] 07/19/2018 21:27:00 Document Registration
== END 2019-12-25 13:52 | disposition home or self-care (01) ==
LOC: EDUNIT# 12:30 → ER FS 12:32
DX: M79.661 Pain in right lower leg (principal); R79.1 Abnormal coagulation profile; I48.91 Unspecified atrial fibrillation; Z79.01 Long term (current) use of anticoagulants; Z91.14 Patient's other noncompliance with medication regimen; Z79.52 Long term (current) use of systemic steroids
CPT/HCPCS: 36415; 85610

== ENCOUNTER → 2021-03-07 | Outpatient (CLI) | payer MEDICARE | LOC: CARD 12:32 | PROVIDERS: ATTEND Internal Medicine Cardiovascular Disease | DX: I08.0 Rheumatic disorders of both mitral and aortic valves (principal); I48.19 Other persistent atrial fibrillation; J90 Pleural effusion, not elsewhere classified; I31.3 Pericardial effusion (noninflammatory) | CPT/HCPCS: 93306 ==

== ENCOUNTER → 2021-03-13 | Outpatient (CLI) | payer MEDICARE ==
[~2021-03-13] MED LIST changes: +CATHETER FLUSH 10 ML SYR IV PRN; +REGADENOSON 0.4 MG/5 ML SYR (LEXISCAN) IV ONE
[2021-03-13 09:01] VITALS: BP 152/106
--- NOTE | 2021-03-13 11:48 | NUCLEAR STRESS TEST ---
REGADENOSON NUCLEAR STRESS Date of procedure: 03/13/2021. Primary care provider: Jas Holbrook MD Admitting physician: Koby Ernandez Jr., MD. INDICATION: Persistent atrial fibrillation. BASELINE ELECTROCARDIOGRAM: Atrial fibrillation with a ventricular rate of 97 bpm with inferior and lateral ST-T wave changes consistent with possible ischemia. STRESS TEST PROCEDURE: The patient was administered 0.4 mg of intravenous Regadenoson. The resting heart rate was 97 bpm and the peak heart rate was 134 bpm. The resting blood pressure was 152/108 mmHg and the minimum blood pressure was 141/80 mmHg. This represents a normal heart rate and a normal blood pressure response to Regadenoson. The test was stopped due to the protocol. There was no chest discomfort during the test. The patient was in atrial fibrillation for the duration of the test with occasional premature ventricular complexes versus aberrantly conducted atrial fibrillation. The stress electrocardiogram is indeterminate due to the baseline abnormalities. NUCLEAR PROCEDURE: The patient was administered 11 mCi of intravenous technetium 99m Tetrofosmin at rest for the rest images. The patient was subsequently administered 32.9 mCi of intravenous technetium 99m Tetrofosmin at peak stress for the stress images. Following an appropriate wait after each injection, imaging was obtained. The images were subsequently processed and reformatted in the usual views. Gated imaging was obtained. The image quality was adequate but with some degree of gastrointestinal attenuation artifact and also gating artifact due to atrial fibrillation. CT attenuation correction was used as a adjunct to standard imaging. Both the corrected and uncorrected images were reviewed for interpretation. NUCLEAR RESULTS: There was a small, moderate intensity, reversible apical defect with a small amount of inducible ischemia. There was normal left ventricular chamber size with an end-diastolic volume of 105 mL and an end-systolic volume of 68 mL. There was no evidence of transient ischemic dilatation. The TID ratio was 1.1. There was global hypokinesis with a calculated ejection fraction of 35%. IMPRESSION: 1. Normal heart rate and blood pressure response to regadenoson with resting hypertension. 2. There was no chest discomfort during the test. 3. The patient was in atrial fibrillation with occasional premature ventricular complexes versus aberrantly conducted atrial fibrillation for the duration of the test. 4. The stress electrocardiogram is indeterminate due to the baseline abnormalities. 5. There was a small, moderate intensity, reversible apical defect with a small amount of inducible ischemia. 6. There was moderate global hypokinesis with a calculated ejection fraction of 35%. However, due to gating artifact from the atrial fibrillation, this could be falsely low. 7. This is an abnormal result representing a moderate risk of ischemic events due to the small ischemic defect coupled with moderate left ventricular systolic dysfunction. Certain portions of this document may have been dictated utilizing voice recognition technology. Inherent to this technology, typographical and grammatical errors may exist. As much as I am diligent to identify and correct these mistakes, some errors may remain in the document. KOBY ERNANDEZ JR, MD Mar 13, 2021 11:48
== END ==
LOC: CARD 08:15
PROVIDERS: ATTEND Internal Medicine Cardiovascular Disease
DX: I48.19 Other persistent atrial fibrillation (principal)
CPT/HCPCS: 78452; 93017; A9502

== ENCOUNTER 2021-04-03 10:00 | Day surgery (SDC) | payer MEDICARE ==
[2021-04-03] VITALS (10 sets, daily range): BP systolic 102–152; BP diastolic 48–97
[~2021-04-03] VITALS: Ht 161 cm; Wt 73.0 kg
[~2021-04-03 10:00] MED LIST changes: +ACHD5005 PO; +ASPIRIN 81 MG CHEW (CHILDREN'S ASA) PO ONE; +CA C1TAB78 PO; +CHOL500044 PO; +FURO20TA4 PO; +HEParin (CATH LAB) 2,000 ML IV ONE; +LIDOCAINE 1% INJ 20 ML 20 ML VIAL ONE; +LISI10TA25 PO; +METO50TA15 PO; +NITR0.4T39 SL; +NS IV 1000 ML 1,000 ML IV ONE; +NS IV 1000 ML 1,000 ML ONE; +PANTOTHENIC ACID PO; -REGADENOSON 0.4 MG/5 ML SYR (LEXISCAN) IV ONE; +WARF4TAB3 PO; +WRF1T PO; +[UNRECOGNIZED DRUG - CODE] PO
[2021-04-03] MEDS ORDERED: fentaNYL INJ 100 MCG/2 ML AMP ONE (10:08)
[2021-04-03] MEDS ORDERED: MIDAZOLAM 5 MG/5 ML (VERSED) VIAL ONE (10:09)
[2021-04-03 10:11] LABS: INR 1.3 (0.8-1.4); PROTHROMBIN TIME PATIENT 16.4 SEC (12.2-14.7)
--- NOTE | 2021-04-03 10:15 | Pre-Op Note & Conscious Sedat ---
Pre-Operative Progress Note H&P Reviewed The H&P was reviewed, patient examined and no changes noted. Date H&P Reviewed: Apr 03, 2021 Time H&P Reviewed: 10:15 Pre-Op Diagnosis: Cardiomyopathy and abnormal nuclear stress test. Conscious Sedation Pre-Proced ASA Score 2 For ASA 3 and 4: Consider anesthesia and medical clearance. Also, for patients with a history of failed moderate sedation consider anesthesia. Airway Lungs Heart ASA score ASA 1: a normal healthy patient ASA 2: a patient with a mild systemic disease (mid diabetes, controlled hypertension, obesity ASA 3: a patient with a severe systemic disease that limits activity (angina, COPD, prior Myocardial infarction) ASA 4: a patient with an incapacitating disease that is a constant threat to life (CHF, renal failure) ASA 5: a moribund patient not expected to survive 24 hrs. (ruptured aneurysm) ASA 6: a declared brain- patient whose organs are being harvested. For emergent operations, add the letter E after the classification Mallampati Classification Grade 2 Sedation Plan Analgesia, Amnesia, Plan communicated to team members, Discussed options with patient/fam, Discussed risks with patient/fam The patient is an appropriate candidate to undergo the planned procedure, sedation, and anesthesia. The patient immediately re-assessed prior to indication. RAMÍREZ WILSON JR, MD Apr 03, 2021 10:15
[2021-04-03] MEDS ORDERED: NITRO DRIP 25000 MCG/D5W 250 ML IV ONE (10:24)
[2021-04-03] MEDS ORDERED: VERAPAMIL 5 MG/2 ML (CALAN) VIAL IV ONE (10:24)
[2021-04-03] MEDS ORDERED: HEParin 1000 UNIT/ML (10ML VIAL) FOR BOLUS ONE (10:24)
--- NOTE | 2021-04-03 11:11 | Cardiac Cath Report ---
CARDIAC CATHETERIZATION DATE OF PROCEDURE: 04/03/2021 INDICATION: Cardiomyopathy and abnormal nuclear stress test. HISTORY: The patient is a 81 year old female with atrial fibrillation of unknown duration. During her evaluation as an outpatient she underwent an echocardiogram and nuclear stress test. Both studies showed moderate left ventricular systolic dysfunction and a nuclear stress test also showed a fixed perfusion abnormality. As such, she is now referred for further evaluation with a cardiac catheterization. PROCEDURES PERFORMED: 1. Left heart catheterization with hemodynamic measurements. 2. Diagnostic te-moak coronary angiography. 3. Right brachial angiography. PROCEDURE DESCRIPTION: After informed consent and in the fasting state, left heart catheterization was performed through the right radial artery utilizing a 6 Samoan system by percutaneous approach. A 5 Samoan JR4 catheter was utilized for the diagnostic portion of the procedure. The catheter was exchanged over a guidewire. There was some difficulty passing the wire through the brachial artery. As such, a 5 Samoan JR4 catheter was positioned in the distal aspect of the right brachial artery and a hand-injection was performed to visualize and map the right brachial artery. RESULTS: HEMODYNAMICS: The aortic pressure was 133/62 mmHg. The left ventricular pressure was 137/0 mmHg with a left ventricular end-diastolic pressure of 14 mmHg. There was no significant pressure gradient upon pullback across the aor tic valve.. CORONARY ANGIOGRAPHY: Left main coronary artery: Short and free of significant disease. Left anterior descending coronary artery: Free of significant disease but with distal tortuosity consistent with hypertension. Left circumflex coronary artery: Dominant and free of significant disease but with distal tortuosity consistent with hypertension. Right coronary artery: Small, nondominant and free of significant disease. RIGHT BRACHIAL ARTERIAL ANGIOGRAPHY: The right brachial artery was tortuous and had a loop but there was no significant atherosclerosis. IMPRESSION: 1. Mildly elevated left ventricular end-diastolic pressure. 2. Angiographically normal-appearing coronary arteries in a left dominant system other than some distal tortuosity consistent with hypertension. 3. The right brachial artery is tortuous and contains a loop in its mid segment but there is no significant atherosclerosis. 4. The patient is known to have moderate left ventricular systolic dysfunction with an estimated ejection fraction of 30-35% by echocardiogram obtained on 03/07/2021. Certain portions of this document may have been dictated utilizing voice recognition technology. Inherent to this technology, typographical and grammatical errors may exist. As much as I am diligent to identify and correct these mistakes, some errors may remain in the document. RAMÍREZ WILSON JR, MD Apr 03, 2021 11:11
[2021-04-03] MEDS ORDERED: PATIENT MAY USE OWN MEDS, ALL PO SCH (11:15)
[2021-04-03] MEDS ORDERED: NS IV 1000 ML 1,000 ML IV SCH (11:15)
[2021-04-03] MEDS ORDERED: ASPIRIN 81 MG CHEW (CHILDREN'S ASA) ONE (14:56)
== END 2021-04-03 15:00 | disposition home or self-care (01) ==
LOC: SDC 11:17 → CATH 15:00
PROVIDERS: ATTEND Internal Medicine Cardiovascular Disease
DX: R07.9 Chest pain, unspecified (principal); I48.19 Other persistent atrial fibrillation; I34.0 Nonrheumatic mitral (valve) insufficiency; I27.20 Pulmonary hypertension, unspecified; I12.9 Hypertensive chronic kidney disease with stage 1 through stage 4 chronic kidney disease, or unspecified chronic kidney disease; N18.30 Chronic kidney disease, stage 3 unspecified; J45.909 Unspecified asthma, uncomplicated; E66.9 Obesity, unspecified; M10.9 Gout, unspecified; Z79.01 Long term (current) use of anticoagulants; Z68.28 Body mass index [BMI] 28.0-28.9, adult; Z79.899 Other long term (current) drug therapy; Z88.0 Allergy status to penicillin; Z88.8 Allergy status to other drugs, medicaments and biological substances
CPT/HCPCS: 36247; 75710; 85610; 87081; 93458; C1894; 36415

== ENCOUNTER → 2021-05-29 | Day surgery (SDC) | payer MEDICARE ==
[~2021-05-29] VITALS: Ht 161.3 cm; Wt 72.6 kg
[2021-05-29] VITALS (8 sets, daily range): BP systolic 131–161; BP diastolic 48–75
[~2021-05-29] MED LIST changes: -ASPIRIN 81 MG CHEW (CHILDREN'S ASA) PO ONE; +CALC-408 PO; -HEParin (CATH LAB) 2,000 ML IV ONE; -LIDOCAINE 1% INJ 20 ML 20 ML VIAL ONE; +LISI20TA26 PO; +MTP100TCR PO; +RIVA20TA PO; +SPIR25TA PO; +proPOfol 200 MG/20 ML (DIPRIVAN) VIAL IV ONE
[2021-05-29 09:54] LABS: CREATININE SERUM 0.91 MG/DL (0.60-1.30); POTASSIUM 3.9 MMOL/L (3.6-5.0)
--- NOTE | 2021-05-29 10:20 | Cardiac Procedure Note ---
Cardiology Procedures Date of Procedure 05/29/2021 DIRECT-CURRENT CARDIOVERSION INDICATION: Persistent atrial fibrillation. PROCEDURE: After informed consent and in the fasting state, deep sedation was provided by the anesthesia department. I subsequently performed direct-current cardioversion with synchronized biphasic shocks in a stepwise fashion starting with 50 J and then 100 J. The patient converted to sinus bradycardia with the second shock. IMPRESSION: 1. Status post successful direct-current cardioversion with a final biphasic energy level of 100 J with conversion of atrial fibrillation to sinus bradycardia. Certain portions of this document may have been dictated utilizing voice recognition technology. Inherent to this technology, typographical and grammatical errors may exist. As much as I am diligent to identify and correct these mistakes, some errors may remain in the document. RAMÍREZ WILSON JR, MD May 29, 2021 10:20
--- NOTE | 2021-05-29 10:59 | Anesthesia-General Post-Op ---
MAC Patient Condition Mental Status/LOC: Same as Preop Cardiovascular: Satisfactory Nausea/Vomiting: Absent Respiratory: Satisfactory Pain: Controlled Complications: Absent Post Op Complications Complications None Follow Up Care/Instructions Patient Instructions None needed. Anesthesiology Discharge Order Discharge Order Patient is doing well, no complaints, stable vital signs, no apparent adverse anesthesia problems. No complications reported per nursing. MUNIRA PRADO CRNA May 29, 2021 10:59
== END ==
LOC: CATH 08:53
PROVIDERS: ATTEND Internal Medicine Cardiovascular Disease
DX: I48.19 Other persistent atrial fibrillation (principal); I12.9 Hypertensive chronic kidney disease with stage 1 through stage 4 chronic kidney disease, or unspecified chronic kidney disease; N18.30 Chronic kidney disease, stage 3 unspecified; J45.909 Unspecified asthma, uncomplicated; I27.20 Pulmonary hypertension, unspecified; M10.9 Gout, unspecified; Z79.899 Other long term (current) drug therapy; Z79.01 Long term (current) use of anticoagulants; Z79.891 Long term (current) use of opiate analgesic; Z99.81 Dependence on supplemental oxygen; I42.9 Cardiomyopathy, unspecified; I34.0 Nonrheumatic mitral (valve) insufficiency; E66.3 Overweight; Z68.27 Body mass index [BMI] 27.0-27.9, adult; Q27.9 Congenital malformation of peripheral vascular system, unspecified
CPT/HCPCS: 36415; 80048; 92960; 93005

== ENCOUNTER 2021-09-25 10:00 | Day surgery (SDC) | payer MEDICARE ==
[~2021-09-25] VITALS: Ht 161.3 cm; Wt 72.9 kg
[2021-09-25 09:52] VITALS: BP 139/66
[~2021-09-25 10:00] MED LIST changes: -proPOfol 200 MG/20 ML (DIPRIVAN) VIAL IV ONE
--- NOTE | 2021-09-25 10:01 | Consultation-Cardiology ---
HPI-Cardiology Cardiology Consultation: Date of Consultation THIS IS A HISTORY AND PHYSICAL FOR OUTPATIENT CARDIOVERSION. Date of Admission 09/25/2021 Attending Physician Ramírez Ernandez Jr, MD Admitting Physician Jas Holbrook MD Consulting Physician RAMÍREZ ERNANDEZ JR, MD HPI: Time Seen by a Provider: 09:59 Chief Complaint: Atrial fibrillation. I had the pleasure of seeing Danelle in the cardiology unit at [facility] in [place], [place] this morning. She has a history of cardiomyopathy detected on an echocardiogram and nuclear stress test in February 2021, persistent, possibly permanent atrial fibrillation, a right brachial artery loop, mitral regurgitation, hypertension, pulmonary hypertension, asthma, gouty arthritis, and stage 3 chronic kidney disease. She presents today for direct-current cardioversion. She denies any specific cardiac complaints at this time. However, when we previously had her in sinus rhythm, she felt as though she had more energy. Review of Systems-Cardiology Review of Systems Other comments Review of 10 organ systems is as per the history of present illness, otherwise negative. SXD-Ghqjyj-Oioiuw Hx Patient Social History 2nd Hand Smoke Exposure: No Past Medical History PMH As described under Assessment. Family Medical History Family Medical History: The patient does not know of any family history of premature coronary artery disease in first-degree relatives. Allergies and Home Medications Allergies Coded Allergies: No Known Drug Allergies (Verified , 11/19/08) Patient Home Medication List Home Medication List Reviewed: Yes Albuterol Sulfate (Proair Hfa) 1 Puff Puff, 2 PUFF IH Q4H PRN for SHORTNESS OF BREATH, (Reported) Entered as Reported by: AMY DAVIS on 04/03/21 0956 Last Action: Reviewed Allopurinol (Allopurinol) 100 Mg Tablet, 100 MG PO DAILY, (Reported) Entered as Reported by: Ольга Oh on 09/25/21 1016 Last Action: Reviewed Calcium Carb/Magnesium Oxid/D3 (Calcium Magnesium + D Tablet) 1 Each Tablet, 1 EACH PO BID, (Reported) Entered as Reported by: AMY DAVIS on 05/29/21 1000 Last Action: Reviewed Cholecalciferol (Vitamin D3) (Vitamin D3) 125 Mcg Tablet, 125 MCG PO Q72H, (Reported) Entered as Reported by: AMY DAVIS on 04/03/21 0956 Last Action: Reviewed Dronedarone HCl (Multaq) 400 Mg Tablet, 400 MG PO BID, (Reported) Entered as Reported by: Ольга Oh on 09/25/21 1016 Last Action: Reviewed Lisinopril (Lisinopril) 40 Mg Tablet, 40 MG PO DAILY, (Reported) Entered as Reported by: Ольга Oh on 09/25/21 1016 Last Action: Reviewed Metoprolol Succinate (Metoprolol Succinate) 100 Mg Tab.er.24h, 50 MG PO DAILY Prescribed by: RAMÍREZ ERNANDEZ JR, MD on 05/29/21 1017 Last Action: Reviewed Multivit-Min/FA/Lycopen/Lutein (Adults 50+ Multivitamin Tablet) 1 Each Tablet, 1 EACH PO DAILY, (Reported) Entered as Reported by: AMY DAVIS on 04/03/21 0956 Last Action: Reviewed Nitroglycerin (Nitroglycerin) 0.4 Mg Tab.subl, 0.4 MG SL UD PRN for CHEST PAIN, (Reported) Entered as Reported by: AMY DAVIS on 04/03/21 0956 Last Action: Reviewed Rivaroxaban (Xarelto) 20 Mg Tablet, 20 MG PO HS, (Reported) Entered as Reported by: AMY DAVIS on 05/29/21 1000 Last Action: Reviewed Spironolactone (Aldactone) 25 Mg Tablet, 25 MG PO 1400, (Reported) Entered as Reported by: AMY DAVIS on 05/29/21 1000 Last Action: Reviewed [Pantothenic Acid] 500MG TAB, 100 MG PO 1200,2000, (Reported) Entered as Reported by: AMY DAVIS on 04/03/21 0956 Last Action: Reviewed Discontinued Medications Lisinopril (Lisinopril) 20 Mg Tablet, 20 MG PO DAILY, (Reported) Discontinued Reason: No Longer Taking Entered as Reported by: AMY DAVIS on 05/29/21 1003 Last Action: Discontinued Exam Physical Exam General: Alert. No acute distress. Well nourished and appears stated age. Eye: Extraocular movements are intact. Conjunctivae are clear. There are no xanthelasma. HENT: Normocephalic. Atraumatic. Carotid pulsations 2/2 without bruits. Neck: Jugular venous pressure does not appear elevated. No thyromegaly appreciat ed. Respiratory: Lungs are clear to auscultation. Respirations are non-labored. Breath sounds are equal. Symmetrical chest wall expansion. Cardiovascular: Normal rate. Irregular rhythm. No murmur. No gallop. Point of maximal impulse is not appear displaced. Good pulses equal in all extremities. No edema. Gastrointestinal: Soft. Normal bowel sounds. Skin: Skin turgor is normal. There is no pallor. Musculoskeletal: No kyphosis or scoliosis appreciated. Neurologic: Alert and oriented to person, place, time. Cranial nerves 3-12 appear grossly intact. The patient has good motor tone strength in the upper and lower extremities bilaterally. Psychiatric: Cooperative. Appropriate mood & affect. Radiology PERTINENT TEST RESULTS (reviewed during this visit): ELECTROCARDIOGRAM (08/13/2021): Atrial fibrillation with a ventricular rate of 61 bpm with left ventricular hypertrophy and nonspecific inferolateral ST-T wave changes. ELECTROCARDIOGRAM (07/10/2021): Atrial fibrillation with a ventricular rate of 85 bpm with left ventricular hypertrophy and repolarization abnormality. QTC 471 ms. LABS (07/04/2021): Glucose 102. Creatinine 0.96. GFR 55. Sodium 140. Potassium 4.8 ELECTROCARDIOGRAM (06/05/2021): Sinus bradycardia at 53 bpm with occasional pre mature supraventricular complexes, left atrial abnormality, and probable left ventricular hypertrophy with repolarization abnormality. DIRECT-CURRENT CARDIOVERSION (05/29/2021): 1. Status post successful direct-current cardioversion with a final biphasic energy level of 100 J with conversion of atrial fibrillation to sinus bradycardia. LABS (05/29/2021): Sodium 140. Potassium 3.9. Creatinine 0.91. GFR 59. ELECTROCARDIOGRAM (05/21/2021): Atrial fibrillation with a ventricular rate of 78 bpm with left ventricular hypertrophy and repolarization abnormality. LABS (05/05/2021): Glucose 89. BUN 20. Creatinine 0.9. GFR 60. Sodium 142. Potassium 4 ELECTROCARDIOGRAM (04/21/2021): Atrial fibrillation with a ventricular rate of 53-85 bpm with borderline right axis deviation at 98, possible left ventricular hypertrophy, and nonspecific inferolateral ST-T wave changes. CARDIAC CATHETERIZATION (04/03/2021): 1. Mildly elevated left ventricular end-diastolic pressure. 2. Angiographically normal-appearing coronary arteries in a left dominant system other than some distal tortuosity consistent with hypertension. 3. The right brachial artery is tortuous and contains a loop in its mid segment but there is no significant atherosclerosis. 4. The patient is known to have moderate left ventricular systolic dysfunction with an estimated ejection fraction of 30-35% by echocardiogram obtained on 03/07/2021. LABS (03/28/2021): Total cholesterol 182. Triglycerides 163. HDL 48. LDL 106. Glucose 105. Creatinine 1.04. GFR 50. Potassium 3.9. Liver function tests normal. Hemoglobin 11.6. Platelets 291,000. INR 1.8. TSH 1.78. ELECTROCARDIOGRAM (03/13/2021): Atrial fibrillation with a ventricular rate of 76 bpm with left ventricular hypertrophy and nonspecific ST-T wave changes. REGADENOSON NUCLEAR STRESS TEST (03/13/2021): 1. Normal heart rate and blood pressure response to regadenoson with resting hypertension. 2. There was no chest discomfort during the test. 3. The patient was in atrial fibrillation with occasional premature ventricular complexes versus aberrantly conducted atrial fibrillation for the duration of the test. 4. The stress electrocardiogram is indeterminate due to the baseline abnormalities. 5. There was a small, moderate intensity, reversible apical defect with a small amount of inducible ischemia. 6. There was moderate global hypokinesis with a calculated ejection fraction of 35%. However, due to gating artifact from the atrial fibrillation, this could be falsely low. 7. This is an abnormal result representing a moderate risk of ischemic events due to the small ischemic defect coupled with moderate left ventricular systolic dysfunction. ECHOCARDIOGRAM (03/07/2021): 1. Normal left ventricular chamber size with severe concentric left ventricular hypertrophy. Moderate left ventricular systolic dysfunction with an estimated ejection fraction of 30-35%. 2. The left ventricular diastolic function is indeterminate. 3. The right ventricle is normal in size but with mild systolic dysfunction. TAPSE 1.5 cm. 4. The left atrium is mildly dilated at 4.7 cm. 5. There is moderate mitral regurgitation. 6. There is mild aortic valve sclerosis. There is mild aortic regurgitation. 7. There is a trivial pericardial effusion. There are bilateral pleural effusions. 8. The estimated pulmonary artery systolic pressure is 46 mmHg. CHEST 1 VIEW (03/04/2021): Bibasilar atelectasis. ELECTROCARDIOGRAM (02/27/2021): Atrial fibrillation with a rapid ventricular rate at 144 bpm with possible left ventricular hypertrophy with repolarization abnormality. ELECTROCARDIOGRAM (02/25/2021): Atrial fibrillation with a rapid ventricular rate up to 160 bpm with left ventricular hypertrophy with repolarization abnormality. LABS (10/17/2020): Glucose 108. Creatinine 1.07. GFR 49. Potassium 4.1. Liver function tests normal. TSH 1.42. ECHOCARDIOGRAM (11/20/2008): 1. Normal left ventricular size and systolic function. Estimated ejection fract ion is 60%. 2. Moderate mitral regurgitation, mild tricuspid regurgitation. 3. Pulmonary hypertension with estimated pulmonary artery systolic pressure of 40 mmHg. EXERCISE MYOVIEW STRESS TEST (11/20/2008): 1. Poor exercise tolerance, a total of 3 minutes and 39 seconds/4.6 METS achieving 89% of maximum expected heart rate. 2. Appropriate heart rate and blood pressure response to exercise, returned to baseline during recovery. 3. Nondiagnostic EKG changes with exercise, return to baseline during recovery. 4. Typical female pattern with no ischemia or infarction on SPECT images. 5. Normal left ventricular size with good systolic function, no segmental wall motion abnormality. Calculated ejection fraction is 68%. ECG Impression ECG Comment Atrial fibrillation. Diagnosis/Problems Diagnosis/Problems (1) Persistent atrial fibrillation Assessment & Plan: The patient is here for cardioversion. She has been placed on dronedarone but remains in atrial fibrillation. She has been on rivaroxaban for stroke prophylaxis. RAMÍREZ ERNANDEZ JR, MD Sep 25, 2021 10:01
[2021-09-25] MEDS ORDERED: proPOfol 200 MG/20 ML (DIPRIVAN) VIAL IV ONE (10:07)
[2021-09-25] MEDS ORDERED: LISI40TA9 PO (10:16)
[2021-09-25] MEDS ORDERED: ALLO100T PO (10:16)
[2021-09-25] MEDS ORDERED: DRON400T6 PO (10:16)
[2021-09-25 10:17] VITALS: BP 146/67
[2021-09-25 10:22] VITALS: BP 134/62
[2021-09-25 10:30] VITALS: BP 126/52
[2021-09-25 10:45] VITALS: BP 142/56
--- NOTE | 2021-09-25 10:48 | Cardiac Procedure Note ---
Cardiology Procedures Date of Procedure 09/25/2021 DIRECT CURRENT CARDIOVERSION INDICATION: Persistent atrial fibrillation. PROCEDURE: After informed consent and in the fasting state, deep sedation was provided by the anesthesia department. I subsequently performed direct-current cardioversion with 1 synchronized, biphasic shock at 50 J with successful conversion of atrial fibrillation to sinus rhythm. IMPRESSION: 1. Status post successful direct-current cardioversion with 1 synchronized, biphasic shock at 50 J with conversion of atrial fibrillation to sinus rhythm. Certain portions of this document may have been dictated utilizing voice recognition technology. Inherent to this technology, typographical and grammatical errors may exist. As much as I am diligent to identify and correct these mistakes, some errors may remain in the document. RAMÍREZ WILSON JR, MD Sep 25, 2021 10:48
[2021-09-25 11:02] VITALS: BP 141/60
== END 2021-09-25 11:09 ==
LOC: CATH 10:00
PROVIDERS: ATTEND Internal Medicine Cardiovascular Disease
DX: I48.19 Other persistent atrial fibrillation (principal)
CPT/HCPCS: 92960; 93005

== ENCOUNTER → 2021-12-16 | Outpatient (CLI) | payer MEDICARE ==
[~2021-12-16] MED LIST changes: +ALLO100T PO; -CATHETER FLUSH 10 ML SYR IV PRN; +DRON400T6 PO; +LISI40TA9 PO; -NS IV 1000 ML 1,000 ML IV ONE; -NS IV 1000 ML 1,000 ML ONE
== END ==
LOC: CARD 11:18
PROVIDERS: ATTEND Internal Medicine Cardiovascular Disease
DX: I08.0 Rheumatic disorders of both mitral and aortic valves (principal); I42.9 Cardiomyopathy, unspecified
CPT/HCPCS: 93306

== ENCOUNTER → 2022-01-02 | Outpatient (CLI) | payer MEDICARE ==
--- NOTE | 2022-01-02 11:36 | Diagnostic Imaging Report ---
Indication: Fall with bilateral hip pain. Time of Exam: 10:35 AM AP view of the pelvis and 2 views of each hip were obtained. Femoral acetabular alignment is normal bilaterally. There is some sclerosis at the femoral head and neck junction on the left which could represent a healing subcapital fracture. No acute fracture line is identified. There are some degenerative changes of the bilateral hips. Femoral necks are intact. Rami appear to be intact. SI joints and symphysis are not widened. IMPRESSION: Questionable healing or healed left hip fracture at the subcapital location. No acute fracture is seen. There are bilateral hip joint degenerative changes. Dictated by: Dictated on workstation # [id number]
--- NOTE | 2022-01-02 11:38 | Diagnostic Imaging Report ---
Indication: Fall and low back pain. Time of Exam: 10:38 AM 3 views lumbar spine were obtained. Curvature and alignment are normal. There is minimal anterolisthesis of L4 on L5. Vertebral body heights are maintained. No acute compression fracture is seen. There is generalized lumbar spondylosis with variable disc space narrowing and marginal spurring. Lower lumbar facet arthropathy is noted. IMPRESSION: Lumbar spondylosis and minimal anterolisthesis of L4 on L5. No acute bony abnormality is detected. Dictated by: Dictated on workstation # [id number]
--- NOTE | 2022-01-02 11:38 | Diagnostic Imaging Report ---
Indication: Back pain. Time of Exam: 10:38 AM Curvature and alignment of the lumbar thoracic spine are normal. Vertebral body heights are maintained. No acute compression fracture is seen. There is multilevel degenerative disc disease with variable disc space narrowing and marginal spurring. Pedicles and paraspinous line are intact. IMPRESSION: Thoracic spondylosis. No acute bony abnormality is detected. Dictated by: Dictated on workstation # [id number]
== END ==
LOC: RAD FS 10:16
PROVIDERS: ATTEND Family Medicine
DX: M47.816 Spondylosis without myelopathy or radiculopathy, lumbar region (principal); M16.0 Bilateral primary osteoarthritis of hip
CPT/HCPCS: 72072; 72100; 73521

== ENCOUNTER → 2022-02-03 | Outpatient (CLI) | payer MEDICARE ==
--- NOTE | 2022-02-03 12:17 | Diagnostic Imaging Report ---
Indication: Femur fracture. Time of Exam: 11:44 AM Correlation is made prior radiograph from 01/02/2022. AP view pelvis 2 views left hip were obtained. Femoral acetabular alignment is normal. Subcapital left hip fracture again shows some healing. Fracture line is not well visualized. No new fractures seen. Right hip is intact. Rami are intact. IMPRESSION: Stable appearance left hip when compared to examination one month earlier. Dictated by: Dictated on workstation # [id number]
== END ==
LOC: RAD FS 11:29
PROVIDERS: ATTEND Nurse Practitioner
DX: S72.035A Nondisplaced midcervical fracture of left femur, initial encounter for closed fracture (principal); X58.XXXA Exposure to other specified factors, initial encounter
CPT/HCPCS: 73502

== ENCOUNTER → 2022-04-02 | Outpatient (CLI) | payer MEDICARE ==
--- NOTE | 2022-04-02 18:51 | Diagnostic Imaging Report ---
INDICATION: Pubic pain FINDINGS: The previously described left subcapital fracture appears well healed. Some sclerosis in both sides of the pubic symphysis. No acute fracture or dislocation. Soft tissues are unremarkable. 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 Dictated by: Dictated on workstation # [id number]
== END ==
LOC: RAD FS 10:27
PROVIDERS: ATTEND Nurse Practitioner
DX: M24.10 Other articular cartilage disorders, unspecified site (principal); M89.9 Disorder of bone, unspecified
CPT/HCPCS: 72170

== ENCOUNTER → 2022-07-15 | Outpatient (CLI) | payer MEDICARE ==
[~2022-07-15] MED LIST changes: +ALBU8.5H6 IH; -RT-ALBUINH IH
--- NOTE | 2022-07-15 18:24 | Diagnostic Imaging Report ---
INDICATION: Back pain FINDINGS: Lumbar stature is normal. The alignment is anatomic. No acute endplate irregularity. No fracture evident. There are degenerative changes to the discs, endplates and facets, chronic. IMPRESSION: Chronic degenerative changes. No acute appearing abnormality. Dictated by: Dictated on workstation # [id number]
== END ==
LOC: RAD FS 11:34
PROVIDERS: ATTEND Family Medicine
DX: M47.816 Spondylosis without myelopathy or radiculopathy, lumbar region (principal); M51.36 Other intervertebral disc degeneration, lumbar region
CPT/HCPCS: 72100

== ENCOUNTER → 2023-03-01 | Outpatient (CLI) | payer MEDICARE | LOC: CARD 11:52 | PROVIDERS: ATTEND Nurse Practitioner Family | DX: I08.0 Rheumatic disorders of both mitral and aortic valves (principal); I48.19 Other persistent atrial fibrillation | CPT/HCPCS: 93306 ==

== ENCOUNTER → 2023-04-30 | Outpatient (CLI) | payer MEDICARE ==
[~2023-04-30] MED LIST changes: +CATHETER FLUSH 10 ML SYR IVP PRN; +REGADENOSON 0.4 MG/5 ML SYR IV ONE; +meTOprolol INJECTION 5 MG/5 ML VIAL ONE
[2023-04-30 09:00] VITALS: BP 158/86
--- NOTE | 2023-05-06 21:47 | STRESS TEST ---
DATE OF SERVICE: 04/30/2023 RESTING AND POST REGADENOSON TECHNETIUM-99M TETROFOSMIN SPECT CT IMAGING ORDERING PHYSICIAN: Natalie Hinkle APRN. PRIMARY PHYSICIAN: Dr. Holbrook. CLINICAL DIAGNOSIS: Chest discomfort. Baseline images were carried out after injection of 10.94 mCi of technetium-99m tetrofosmin. This was followed by 0.4 mg regadenoson and 31.6 mCi of technetium-99m tetrofosmin for stress imaging. The electrocardiogram showed atrial fibrillation at baseline and it did not change significantly with the regadenoson infusion. The patient tolerated the procedure well. Review of images at rest and following stress does not indicate any distinct perfusion defects consistent with significant myocardial ischemia or infarction. Gated images show normal global left ventricular systolic function with normal regional wall motion. Left ventricular ejection fraction is calculated to be 44%. CONCLUSIONS: 1. No evidence of significant myocardial ischemia or infarction on the study. 2. Well preserved global left ventricular systolic function with a calculated ejection fraction of 44%. 3. No regional wall motion abnormality identified on this study. Job ID: [id number] DocumentID: [id number] Dictated Date: 05/06/2023 18:59:41 [employer] Date: 05/06/2023 21:46:00 Dictated By: VINNY JOSHUA MD; LEN; FACP; FACC;
== END ==
LOC: CARD 07:57
PROVIDERS: ATTEND Nurse Practitioner Family
DX: R07.89 Other chest pain (principal)
CPT/HCPCS: 78452; 93017; A9502

== ENCOUNTER → 2023-07-05 | Outpatient (CLI) | payer MEDICARE ==
[~2023-07-05] MED LIST changes: -CATHETER FLUSH 10 ML SYR IVP PRN; -REGADENOSON 0.4 MG/5 ML SYR IV ONE; -meTOprolol INJECTION 5 MG/5 ML VIAL ONE
== END ==
LOC: CARD 09:22
PROVIDERS: ATTEND Nurse Practitioner Family
DX: I51.7 Cardiomegaly (principal); I34.0 Nonrheumatic mitral (valve) insufficiency; I35.1 Nonrheumatic aortic (valve) insufficiency
CPT/HCPCS: 93306